=== PATIENT | female | born 1995 | race Two or more races ===

== ENCOUNTER 2018-12-15 11:25 | Emergency (ER) | payer OTHER ==
--- NOTE | 2018-12-15 11:40 | NUR ---
OFFICERSGOT A CALL TO TAKE PATIENT TO DOWNHERCULANE[facility]N([place]) INSTEAD. DR PRIETO INFORMED AND OK'D FOR THEM TO LEAVE.
== END 2018-12-15 11:43 ==
LOC: ER 11:28
DX: Z53.21 Procedure and treatment not carried out due to patient leaving prior to being seen by health care provider (principal)